=== PATIENT | female | born 1985 | race Caucasian/White ===

== ENCOUNTER 2016-06-08 16:13 | Day surgery (SDC) | payer OTHER ==
[2016-06-07 10:44] VITALS: BMI 45.5
--- NOTE | 2016-06-08 17:56 | HP ---
Satellite [facility] - Chief Complaint Chief Complaint: RUQ pain History Source: Patient Limitations to Obtaining History: No Limitations - Past Medical History Allergies/Adverse Reactions: Allergies Allergy/AdvReac Type Severity Reaction Status Date / Time erythromycin base Allergy Intermediate Hives Verified 06/08/16 16:53 Hepatobiliary: Yes: Cholelithiasis, Other (Biliary colic) ...LMP: 04/24/16 Additional Medical History: s/p ariadna en y gastric bypass - Current Medications Current Medications: Home Medications Medication Instructions Recorded Ergocalciferol (Vitamin D2) 2,000 unit PO DAILY 06/07/16 [Vitamin D2] Multivitamins [Tab-A-Vit -] 1 tab PO DAILY 06/07/16 Docusate Sodium [Colace -] 100 mg PO TID #90 capsule 06/08/16 Oxycodone HCl/Acetaminophen 1 - 2 tab PO Q6H #28 tab MDD 4 06/08/16 [Percocet 5-325 mg Tablet] Satellite Physical Exam - Physical Examination Vital Signs: Vital Signs Period Temp Pulse Resp BP Sys/Lindsay Pulse Ox Last 24 Hr 98.9 F 81 16 153/88 97 General Appearance: Well Nourished Lung: Clear to auscultation Heart: Regular rate & rhythm Abdomen: Soft, No tenderness Neurological: Alert, Oriented Satellite Impression/Plan - Impression/Plan Impression: Biliary colic- recurrent Operative Procedure: Robotic possible open cholecystectomy Date to be Performed: 06/08/16
[2016-06-08] MEDS ORDERED: BUPIVACAINE HCL/PF 0.5% (5MG/ML) 10 ML VIAL ONE (17:59)
[2016-06-08] MEDS ORDERED: INDOCYANINE GREEN 25 MG/10 ML VIAL IVPUSH ONE (17:59)
[2016-06-08] MEDS ORDERED: ROCURONIUM BROMIDE 50 MG/5 ML VIAL ONE (18:17)
[2016-06-08] MEDS ORDERED: MIDAZOLAM HCL 2 MG/2 ML SINGLE DOSE VIAL ONE (18:17)
[2016-06-08] MEDS ORDERED: PROPOFOL 20 ML ONE (18:17)
[2016-06-08] MEDS ORDERED: ceFAZolin SODIUM 1 GM VIAL IVPB ONE (18:45)
[2016-06-08] MEDS ORDERED: ceFAZolin SODIUM 1 GM VIAL ONE (18:50)
[2016-06-08] MEDS ORDERED: DEXAMETHASONE SOD PHOSPHATE 4 MG/1 ML VIAL ONE (18:52)
[2016-06-08] MEDS ORDERED: HYDROmorphone HCL/PF 1 MG/ML VIAL (FOR PYXIS CHARGING ONLY) ONE ×2 (19:03→21:16)
[2016-06-08] MEDS ORDERED: LABETALOL HCL 5 MG/1 ML (100MG/20 ML VIAL) ONE (19:19)
[2016-06-08] MEDS ORDERED: BUPIVACAINE HCL/PF 0.5% (5MG/ML) 10 ML VIAL IJ ONE ×2 (20:07→20:57)
[2016-06-08] MEDS ORDERED: KETOROLAC TROMETHAMINE 30 MG/1 ML VIAL ONE (21:04)
[2016-06-08] MEDS ORDERED: ONDANSETRON 4 MG/2 ML VIAL IVPB PRN ×2 (21:09→21:37)
[2016-06-08] MEDS ORDERED: HYDROmorphone HCL CARPU-JECT 1 MG/1 ML DISP.SYRIN IVPB PRN ×2 (21:09→21:37)
[2016-06-08] MEDS ORDERED: ACETAMINOPHEN 325 MG TABLET (FP) PO PRN ×2 (21:09→21:37)
--- NOTE | 2016-06-08 21:12 | OP ---
Operative Note - Note: Operative Date: 06/08/16 Pre-Operative Diagnosis: Recurrent biliary colic Operation: Laparoscopic extensive lysis of adhesions, Robotic cholecystectomy, repair of duodenal serosal defect Findings: Extensive intraabdominal adhesions Post-Operative Diagnosis: Other (Recurrent biliary colic, extensive intraabdominal adhesions) Surgeon: Ketan García Contact Center Representative: Sridhar Flores Anesthesia: General Specimens Removed: Gallbladder Estimated Blood Loss (mls): 100 Operative Report Dictated: Yes
[2016-06-08] MEDS ORDERED: D5-1/2NS+20 MEQ KCL - 1,000 ML IV SCH (21:15)
[2016-06-08] MEDS ORDERED: ONDANSETRON 4 MG/2 ML VIAL IVPUSH PRN (21:32)
[2016-06-08] MEDS ORDERED: LACTATED RINGERS SOLUTION 1,000 ML IV SCH (21:45)
[2016-06-08 22:11] LABS: MCH 25.1 pg (25.7-33.7); MCHC 31.9 g/dl (32.0-36.0); MEAN CELL VOLUME 78.6 fl (80-96); MEAN PLT VOLUME 7.6 fl (7.5-11.1); PLATELET COUNT 234 K/MM3 (134-434); RDW 14.4 % (11.6-15.6); WHITE BLOOD COUNT 11.1 K/mm3 (4.0-10.0)
[2016-06-08 22:34] LABS: ALBUMIN 3.8 g/dl (3.4-5.0); BILIRUBIN,DIRECT 0.1 mg/dL (0.0-0.2); BILIRUBIN,TOTAL 0.4 mg/dL (0.2-1.0); CALCIUM 8.4 mg/dL (8.5-10.1); COCKROFT - GAULT 271.813; CREATININE 0.6 mg/dL (0.55-1.02)
[2016-06-08] MEDS: D5-1/2NS+20 MEQ KCL - 1,000 ML IV SCH (22:45)
--- NOTE | 2016-06-08 22:47 | OP ---
DATE OF OPERATION: 06/08/2016 SURGEON: Keenan García M.D. CUSTOMER OPERATIONS ASSOCIATE: Sridhar Flores M.D. PREOPERATIVE DIAGNOSIS: Recurrent biliary colic. POSTOPERATIVE DIAGNOSIS: Recurrent biliary colic, extensive intraabdominal adhesions. PROCEDURE: Laparoscopic extensive lysis of adhesions, robotic cholecystectomy, repair of duodenal serosal defect. SPECIMENS: Gallbladder. ESTIMATED BLOOD LOSS: 100 mL. DRAINS: None. ANESTHESIA: GET. REASON FOR THE PROCEDURE: This is a 30-year-old female who presented to the office for complaints of recurrent right upper quadrant pain. She was found to have evidence of stones on ultrasound, and her pain was consistent with recurrent biliary colic. She was noted to have previous large midline incision from previous exploratory laparotomy following a Clint-en-Y gastric bypass with postoperative complications. The risks and benefits of a robotic, possible open cholecystectomy were explained. These included bleeding, infection, hernia, [place], DVT, PE, injury to surrounding structures including the liver, duodenum, small bowel, stomach, ductal injury, vessel injury, nerve injury, retained stone, bile leak, abscess formation, as some of the complications. She understood and signed informed consent. In addition, it was explained that because of her midline incision and previous exploratory laparotomy, there might be extensive intraabdominal adhesions that might need to be taken down; this would increase the possible risk of injury to surrounding organs including bowel and additional trocars may need to be placed to do the procedure. She understood, and again, informed consent was obtained. DESCRIPTION OF PROCEDURE: Patient was placed supine on the operating room table. She underwent general endotracheal intubation. The abdomen was prepped and draped in a sterile fashion. Timeout was performed. An incision was made in the left upper quadrant and a Veress needle inserted. Pneumoperitoneum was established. Subsequently the Veress needle was removed, and an 8-mm robotic trocar was placed under direct visualization with laparoscope. Immediately on inspection of the abdominal cavity, it was noted there were extensive intraabdominal adhesions throughout the abdominal cavity. An 8-mm robotic trocar was able to be placed in the left lateral abdominal wall. Carefully extensive lysis of adhesions was performed using harmonic scalpel. This was done to take the majority of the intraabdominal adhesions down. This took an extensive amount of time and careful meticulous dissection. After all adhesions were taken down, the further trocars were able to be placed. An 8-mm robotic trocar was placed to the left of the umbilicus, one to the right of the umbilicus, and one to the right lateral abdominal wall. In addition, there was noted to be a small serosal defect in the duodenum. This was marked with a suture, so that this could be repaired robotically. The 8-mm robotic trocar in the left upper quadrant was replaced with a 12-mm trocar. This was done in order to cooper the area of the duodenal serosal defect with an Endo Stitch with a 2-0 Ethibond suture. The patient was then placed in reverse Trendelenburg, right side up position. The robot was brought over and docked. Dissection was performed with at the console. Further adhesions were noted from the omentum to the gallbladder in the anterior abdominal wall. These were carefully taken down using hook electrocautery. The gallbladder was grasped cephalad and laterally. Dissection was performed, and the cystic duct followed by the cystic artery were circumferentially dissected. Firefly technology was used to confirm anatomy. The cystic duct followed by the cystic artery were clipped, and transected. The gallbladder was moved off the liver bed using electrocautery. Hemostasis was achieved using electrocautery, and the clips were noted to be intact. Irrigation and suction was performed until clear. The serosal defect in the duodenum was then oversewn using 3-0 silk suture in Lembert fashion x2. The defect was noted to be fully repaired. All needles were removed, and the area was further copiously irrigated and suctioned until clear. The robot was undocked from the field after all instruments were removed, and the gallbladder was placed in an Endocatch bag through the 12-mm trocar port. The gallbladder was removed from the 12mm trocar site which needed to be extended because of the large stone noted within the gallbladder. The specimen was sent off the field. All wounds were irrigated, and hemostasis was achieved. All trocars were removed after pneumoperitoneum was desufflated. A 2-0 Vicryl suture was used to close the deep subcutaneous tissue of the left upper quadrant 12-mm trocar site. All incisions were closed using 4-0 Biosyn. Sterile dressings were applied. The patient tolerated the procedure well, transferred to recovery room in stable condition. KEENAN GARCÍA M.D. [id number] MTDD
[2016-06-08] MEDS ORDERED: HYDROmorphone HCL CARPU-JECT 1 MG/1 ML DISP.SYRIN IVPB ONE (23:30)
[2016-06-09] MEDS: HYDROmorphone HCL CARPU-JECT 1 MG/1 ML DISP.SYRIN IVPB PRN ×3 (06:04→14:43)
[2016-06-09 07:18] LABS: CALCIUM 8.5 mg/dL (8.5-10.1)
[2016-06-09 07:24] LABS: ALBUMIN 3.7 g/dl (3.4-5.0); BILIRUBIN,DIRECT 0.1 mg/dL (0.0-0.2); BILIRUBIN,TOTAL 0.5 mg/dL (0.2-1.0); COCKROFT - GAULT 232.9765; CREATININE 0.7 mg/dL (0.55-1.02); TOT PROT 7.3 g/dl (6.4-8.2)
[2016-06-09 07:37] LABS: MCHC 32.4 g/dl (32.0-36.0); MEAN PLT VOLUME 7.9 fl (7.5-11.1); PLATELET COUNT 248 K/MM3 (134-434); RDW 14.6 % (11.6-15.6); WHITE BLOOD COUNT 10.6 K/mm3 (4.0-10.0)
--- NOTE | 2016-06-09 10:31 | PN ---
Progress Note (short form) - Note Progress Note: Anesthesia POD#1 S/P Robotic Hiatal Hernia Repair under GA No pain,nausea/vomiting or itch.VSS A/P No complications to anesthesia seen. Sue Smith MD.
[2016-06-09] MEDS: D5-1/2NS+20 MEQ KCL - 1,000 ML IV SCH (14:09)
[2016-06-09 15:28] VITALS: BP 136/84; PULSE 104; TEMP 98.1
--- NOTE | 2016-06-12 13:49 | PATH ---
Surgical Pathology Report Patient Name: CARISSA UGALDE Med. Rec. #: [id number] /Age/Gender: 1985 (Age: 30) / F Account: [id number] Location: [facility] Taken: 06/08/2016 Received: 06/09/2016 Reported: 06/12/2016 Physicians: Ketan García M.D. Specimen(s) Received GALLBLADDER Clinical History Cholecystitis Final Diagnosis GALLBLADDER, CHOLECYSTECTOMY: CHRONIC CHOLECYSTITIS AND CHOLELITHIASIS. ONE BENIGN LYMPH NODE. Electronically Signed Natanael Orourke M.D. Gross Description Received in formalin, labeled "gallbladder" is a 9.3 x 3.8 x 3.3 cm gallbladder with a 0.2 cm in length portion of cystic duct attached. There is a 0.7 cm greatest dimension possible periductal lymph node present. The outer surface is acevse sepulveda and varies from smooth to shaggy. The lumen contains yellow, sludgelike bile as well as abundant yellow, irregular to fragmented choleliths ranging from 0.1-2.0 cm in greatest dimension. The mucosa is aceves-green and focally eroded. The wall of the gallbladder averages 0.1 cm in thickness. Pelt Dropper sections are submitted in 2 cassettes as follows: 1-cystic duct margin and one whole bisected possible lymph node; 2-sales representative printing supplies mucosa. 06/09/201606/09/2016
== END 2016-06-09 16:26 | disposition home or self-care (01) ==
LOC: JASU-SURG 16:13 → J6S 23:10 → JASU-SURG 06-09 16:26
PROVIDERS: ATTEND Surgery
PROC: 8E0W4CZ Robotic Assisted Procedure of Trunk Region, Percutaneous Endoscopic Approach (ICD-10-PCS; 2016-06-08)
PROC: 0DNW4ZZ Release Peritoneum, Percutaneous Endoscopic Approach (ICD-10-PCS; 2016-06-08)
PROC: 0FT44ZZ Resection of Gallbladder, Percutaneous Endoscopic Approach (ICD-10-PCS; principal; 2016-06-08 16:45)
DX: K80.50 Calculus of bile duct without cholangitis or cholecystitis without obstruction (principal); N99.4 Postprocedural pelvic peritoneal adhesions; Z98.84 Bariatric surgery status
CPT/HCPCS: 47562; S2900; 36415; 80048; 80076; 84703; 85027; 86850; 86900; 86901; 88304-TC; 94760